=== PATIENT | female | born 1960 | race Caucasian/White ===

== ENCOUNTER 2025-05-31 13:05 | Emergency (ER) | payer MEDICARE, OTHER, SELFPAY ==
[2025-05-31 13:11] VITALS: BP 165/136
[2025-05-31 13:51] LABS: Hematocrit 45.9 % (37.0-47.0); Hemoglobin 15.5 g/dL (12.0-16.0); Mean Corp Hgb Conc. 33.8 g/dL (33.0-37.0); Mean Corpuscular Volume 80.8 fL (81.0-99.0); Nucleated Red Blood Cells % 0 %; Platelet Count 399 10^3/uL (130-400); Red Cell Dist. Width 13.4 % (11.5-14.5)
[2025-05-31 14:10] LABS: ALT (SGPT) 33 U/L (0-35); AST (SGOT) 34 U/L (14-36); Albumin 5.7 g/dl (3.5-5.0); Alkaline Phosphatase 96 U/L (38-126); Blood Urea Nitrogen 8 mg/dl (7-17); Calcium 9.8 mg/dl (8.4-10.2); Carbon Dioxide 23 mmol/L (22-30); Chloride 101 mmol/L (98-107); Glucose 158 mg/dl (70-99); Potassium 3.9 mmol/L (3.5-5.1); Sodium 141 mmol/L (135-145); Total Protein 9.4 g/dl (6.3-8.2); eGFR > 60.00
[2025-05-31 16:33] VITALS: BMI 27.1
--- NOTE | 2025-05-31 17:00 | ED.GENMED ---
History of Present Illness
General
Chief Complaint: Headache
Source: patient
Exam Limitations: none
Time Seen by Provider: 05/31/25 16:37
Nursing documentation reviewed up to this point in time: agreed with
History of Present Illness
History of Present Illness:
64-year-old female with history of HTN, HLD presents for headache that she has had for the past 3 weeks. She says initially it was waxing and waning, she saw her PCP Dr. Groves who put her on a migraine medication (Ubrelvy) that is not working.
For the past 2 weeks the headache has become constant like a band around her head and 10/10 pain. She has had several episodes of vomiting daily due to the pain. She takes oxycodone for her back pain 4 times a day and this has not relieved her
headache. When she sits up she feels nauseous, laying down in the dark room helps.
In 10/2024 a Wilson fell onto her forehead, she states she had a seizure and went to [facility] where she was admitted for several days, put on seizure medication which was discontinued in March as she had no further seizures.
She has a cataract in her left eye which makes her vision blurry and denies blurry vision in her right eye.
Past History
Past History
ED Past Medical History: HTN and Hypercholesterolemia
ED Past Surgical History: Gynecological and Orthopedic
Social History
Tobacco: Non-smoker
Personal:
Living: with family
Review of Systems
Review of Systems
Allergies reviewed?: Yes
All Other Systems: ROS reviewed and negative except as documented in HPI and ROS
Phy Exam
Physical Exam
Physical Exam:
GENERAL: No acute distress. A&Ox3.
CONSTITUTIONAL: Afebrile.
EYES: clear, conjunctivae normal, PERRL
ENMT: moist mucus membranes, Pharynx nl
RESPIRATORY: Regular respirations, nonlabored, lungs clear.
CARDIOVASCULAR: Regular rate and rhythm, no murmurs, no rubs.
GI: Soft, nontender, normal BS
MUSCULOSKELETAL: Moves with ease. Well perfused.
SKIN: Warm, dry, pink
PSYCH: Normal mood and affect. Well kept, interactive and appropriate
NEUROLOGIC: Awake, alert and oriented. Cranial nerves II through XII intact. No focal neurological deficits
Course
Orders/Labs/Results
Orders:
Orders
05/31/25 13:11
CT Head W/o Iv Contrast Urgent
Comment:
Reason For Exam: headache, seizure hx
05/31/25 13:46
Complete Blood Count/With Diff Urgent
Comprehensive Metabolic Panel Urgent
05/31/25 16:59
0.9% Sodium Chloride 1000 ml [Nss] 1,000 ml IV BOLUS
Diphenhydramine [Benadryl] 50 mg IV NOW STA
Prochlorperazine [Compazine] 10 mg IV NOW STA
05/31/25 17:54
Ketorolac [Toradol] 15 mg IV NOW STA
05/31/25 19:07
Dexamethasone Sod Phosphate [Decadron] 10 mg IV NOW STA
Abnormal Lab Results
05/31/25
13:46
WBC 14.1 H 10^3/uL
(4.8-10.8)
RBC 5.68 H 10^6/uL
(4.20-5.40)
MCV 80.8 L fL
(81.0-99.0)
Abs Immat Gran (auto) 0.1 H 10^3/uL
(0-0.05)
Absolute Neuts (auto) 9.7 H 10^3/uL
(1.4-6.5)
Absolute Monos (auto) 1.2 H 10^3/uL
(0.1-0.6)
Glucose 158 H mg/dl
(70-99)
Total Protein 9.4 H g/dl
(6.3-8.2)
Albumin 5.7 H g/dl
(3.5-5.0)
05/31/25 13:46
05/31/25 13:46
Vital Signs
Initial and Last Documented VS:
Initial Vital Signs
Temp Pulse Resp Pulse Ox
97.9 F 126 18 97
05/31/25 13:07 05/31/25 13:07 05/31/25 13:07 05/31/25 13:07
Last Documented Vital Signs
Temp Pulse Resp BP Pulse Ox
97.9 F 90 16 159/101 98
05/31/25 13:07 05/31/25 18:53 05/31/25 18:53 05/31/25 18:53 05/31/25 18:53
MDM/Problems Addressed
Differential Diagnosis Includes:
Migraine, tension headache, brain tumor/bleed
MDM/Problems Addressed:
64-year-old female with history of HTN, HLD presents for headache that she has had for the past 3 weeks. She says initially it was waxing and waning, she saw her PCP Dr. Blackwood who put her on a migraine medication that is not working. For the
past 2 weeks the headache has become constant like a band around her head and 10/10 pain. She has had several episodes of vomiting daily due to the pain. She takes oxycodone for her back pain 4 times a day and this has not relieved her headache.
When she sits up she feels nauseous, laying down in the dark room helps.
In 10/2024 a Wilson fell onto her forehead, she states she had a seizure and went to [facility] where she was admitted for several days, put on seizure medication which was discontinued in March as she had no further seizures.
She has a cataract in her left eye which makes her vision blurry and denies blurry vision in her right eye.
Afebrile, NAD
CBC: WBC 14.[address] shows no intracranial abnormality
6:00 p.m.
In to re evaluate. After IVF, Benadryl and Compazine, Pt feeling 'a little better' h/a now 03/24. Toradol ordered
7:30 PM
Patient states her headache is 'much better' almost gone. IV Decadron ordered
DC'd to care of , She also has gabapentin at home she can use if needed, she typically takes as needed for back pain, she is under pain management for back pain.
*Pulse Oximetry
SaO2: 98
Oxygen Mode of Delivery: Room air
Patient hypoxic: no
*Critical Care Note
Total Time (30-74mins, 75-104mins- exclusive of procedures): Not Applicable
ED Attending Note
-
Portions of this chart may have been created with voice recognition software.� Occasional wrong word or��sound alike� substitutions may have occurred due to the inherent limitations of voice recognition software.
Discharge Plan
Departure
Patient Disposition: Home (Routine Discharge)
Date of Disposition: 05/31/25
Time of Disposition: 19:32
Patient with high blood pressure during this ER visit?: Yes
Condition: Good
Discharge Problem:
Headache
Instructions: Migraines (DC), BLOOD PRESSURE
Prescriptions:
New
ondansetron 4 mg tablet,disintegrating
4 mg PO Q8H PRN (Reason: nausea and vomiting) 5 Days Qty: 20 0RF
Referrals:
Jose Francisco Marino MD [Active, Neurology] - As needed
Activity Restrictions/Additional Instructions:
As we discussed, you were given Decadron, a steroid here today. It may take 12 to 24 hours to kick in, it is an anti-inflammatory that may help your headache pain.
I sent a prescription to your pharmacy for Zofran to use as needed for nausea
Call your doctor Tuesday if your headache has not resolved by then
I have given you a neurologist contact information to use if needed
Try Exedrine to see if it helps.
Interventions
Interventions:
*Risk Screen - Suicide Last Done: 05/31/25 13:10
*General Assessment Last Done: 05/31/25 13:10
*Neglect/Abuse Screening Last Done: 05/31/25 13:10
*ED- Fall Risk Assessment Last Done: 05/31/25 20:05
*ED COVID-19 Vaccine History Last Done: 05/31/25 13:10
*ED Influenza Vaccine History Last Done: 05/31/25 13:10
*Nursing Disposition Last Done: 05/31/25 20:05
ED- Neurological Assessment Last Done: 05/31/25 16:33
Discharge Date and Time
Discharge Date/Time: 05/31/25 20:06
Print Language: KHMER
[2025-05-31] MEDS: NSS 1000 IV (17:30)
[2025-05-31] MEDS: COMPAZINE 10 MG IV (17:31)
[2025-05-31] MEDS: BENADRYL 50 MG IV (17:31)
[2025-05-31] MEDS: TORADOL 15 MG IV (17:58)
[2025-05-31 18:53] VITALS: BP 159/101
[2025-05-31] MEDS: DECADRON 10 MG IV (19:33)
== END 2025-05-31 20:06 | disposition home or self-care (01) ==
LOC: EMR 13:05
PROVIDERS: Emergency Medicine; EMERGENCY PHYSICIAN Emergency Medicine; FAMILY PHYSICIAN Family Medicine
DX: R51.9 Headache, unspecified (principal); I10 Essential (primary) hypertension; E78.00 Pure hypercholesterolemia, unspecified
CPT/HCPCS: 99284; 96374; 96375 ×3; 96361; 70450; 80053; 85025